=== PATIENT | female | born 1970 | race Hispanic/Latino ===

== ENCOUNTER 2018-04-16 09:03 | Outpatient (CLI) | payer OTHER, SELFPAY ==
--- NOTE | 2018-04-16 09:48 | MMO ---
BILATERAL SCREENING MAMMOGRAM: History: 47-year-old female for screening mammography. Comparison: 01-08-17, 12-03-15, 11-26-13 FINDINGS: Bilateral MLO and CC views of the breast show heterogeneously dense breast parenchyma, which may low the sensitivity of mammography. There are multiple bilateral well circumscribed masses in the breast of varying sizes. Benign appearing calcifications are seen in the right breast. There is no evidence of suspicious mass, suspicious cluster of microcalcifications, or area of architectural distortion. This study is interpreted with the assistance of computer aided detection. IMPRESSION: BIRADS category 2 - benign findings. Annual screening mammography is recommended. POS: [facility]
== END 2018-04-16 09:04 | disposition home or self-care (01) ==
LOC: SCSMAMMO 09:03
PROVIDERS: ATTEND Family Medicine
DX: Z12.31 Encounter for screening mammogram for malignant neoplasm of breast (principal)
CPT/HCPCS: 77067

== ENCOUNTER 2019-03-12 11:26 | Emergency (ER) | payer SELFPAY ==
[2019-03-12] MEDS ORDERED: Ketorolac Tromethamine 30 MG/ML VIAL ONE (13:45)
--- NOTE | 2019-03-12 14:23 | RAD ---
XR Lumbar Spine 2 Or 3 View HISTORY: Low back pain FINDINGS: No fracture, subluxation or bony destruction is identified. There is loss of lumbar lordosis.
== END 2019-03-12 14:35 | disposition home or self-care (01) ==
LOC: ERS 11:26
DX: M54.5 Low back pain (principal); J45.909 Unspecified asthma, uncomplicated; M19.90 Unspecified osteoarthritis, unspecified site; I10 Essential (primary) hypertension; Z85.89 Personal history of malignant neoplasm of other organs and systems
CPT/HCPCS: 72100; 96372; J1885

== ENCOUNTER 2020-06-06 17:42 | Emergency (ER) | payer SELFPAY ==
[2020-06-06 19:09] LABS: Bilirubin Negative (Negative); Blood, Urine Trace (Negative); Clarity Clear (Clear); Glucose, Urine (Dipstick) Normal (Negative); Ketone, Urine Negative (Negative); Leukocyte 75 Leu/uL (Negative); Nitrite Negative (Negative); Protein, Urine (Dipstick) Negative (Neg-Trace); RBC/HPF 0-3 HPF (0-3); Specific Gravity, Urine 1.003 (1.002-1.036); Urobilinogen Normal mg/dL (Less than 2)
[2020-06-06 19:10] LABS: Bacteria/HPF 1+ HPF (None Seen)
== END 2020-06-06 19:41 | disposition home or self-care (01) ==
LOC: ERS 17:42
DX: U07.1 COVID-19 (principal); N93.0 Postcoital and contact bleeding; I10 Essential (primary) hypertension
CPT/HCPCS: 81001; 99283

== ENCOUNTER 2020-11-04 07:56 | Outpatient (CLI) | payer OTHER | END 2020-11-04 07:57 | disposition home or self-care (01) | LOC: BICULT 07:56 → EDSTATUS 08:00 | PROVIDERS: ATTEND Family Medicine | DX: R94.5 Abnormal results of liver function studies (principal); R14.0 Abdominal distension (gaseous); K76.0 Fatty (change of) liver, not elsewhere classified | CPT/HCPCS: 93975 ==

== ENCOUNTER 2020-11-24 14:28 | Emergency (ER) | payer OTHER, SELFPAY ==
[2020-11-24] MEDS ORDERED: Bacitracin 1 PK ONE (17:29)
== END 2020-11-24 17:36 | disposition home or self-care (01) ==
LOC: ERS 14:28
DX: S80.211A Abrasion, right knee, initial encounter (principal); I10 Essential (primary) hypertension; W19.XXXA Unspecified fall, initial encounter

== ENCOUNTER 2022-06-15 20:56 | Emergency (ER) | payer SELFPAY ==
[2022-06-15] MEDS ORDERED: Ketorolac Tromethamine 30 MG/ML VIAL ONE (21:44)
[2022-06-15] MEDS ORDERED: HYDROcodone/Acetaminophen 10/325 mg Tablet ONE (21:44)
== END 2022-06-15 22:52 | disposition home or self-care (01) ==
LOC: ERS 20:56
DX: S93.402A Sprain of unspecified ligament of left ankle, initial encounter (principal); I10 Essential (primary) hypertension; W19.XXXA Unspecified fall, initial encounter
CPT/HCPCS: 96372; J1885